=== PATIENT | male | born 1995 | race Caucasian/White ===

== ENCOUNTER 2018-01-11 22:25 | Emergency (ER) | payer OTHER ==
--- NOTE | 2018-01-11 22:29 | ER Report ---
History and Physical Time Seen By MD: 22:27 HPI/ROS CHIEF COMPLAINT: Head injury HISTORY OF PRESENT ILLNESS: 22-year-old male presents to the ER complaining of dizziness and headache after he was looking in the fridge rate or when he stood up the freezer door was open he slammed his head into the freezer door quite heartily. He did not fall to the floor. He notes a headache. There is a superficial abrasion to the scalp noted. He notes no neck pain, no chest pain and no other injuries. He notes no visual changes. He notes no nausea or vomiting to suggest concussion or head injury. Patient thinks his last tetanus status is up-to-date. REVIEW OF SYSTEMS: Respiratory: No cough, no dyspnea. Cardiovascular: No chest pain, no palpitations. Gastrointestinal: No vomiting, no abdominal pain. Musculoskeletal: No back pain. Allergies: Coded Allergies: No Known Drug Allergies (Unverified , 01/11/18) Reviewed Nurses Notes: Yes Old Medical Records Reviewed: Yes Constitutional Vital Sign - Last 24 Hours 01/11/18 22:32 Temp 98.1 Pulse 93 Resp 14 B/P (MAP) 142/99 Pulse Ox 96 O2 Delivery Room Air Physical Exam General Appearance: The patient is alert, has no immediate need for airway p rotection and no current signs of toxicity. Vital signs stable, afebrile, palpation of the head and neck reveal no tenderness or trauma. There is some redness to the forehead and scalp. HEENT: Pupils equal and round no injection. TMs normal, oropharynx without dental trauma., Facial bones intact on facial palpation Respiratory: Chest is non tender, lungs are clear to auscultation. Cardiac: regular rate and rhythm Gastrointestinal: Abdomen is soft and non tender, no masses, bowel sounds normal. Musculoskeletal: Neck: Neck is supple and non tender. No tenderness on aggressive palpation of the midline Extremities have full range of motion and are non tender. Skin: No rashes or lesions. DIFFERENTIAL DIAGNOSIS: After history and physical exam differential diagnosis was considered for head injury including but not limited to concussion, skull fracture, intraparenchymal contusion, subarachnoid, subdural and epidural hematoma. Medical Decision Making ED Course/Re-evaluation ED Course Patient was admitted to an examination room. H&P was done. The differential diagnosis was considered. On clinical examination. Patient has a nonfocal neurologic examination. He has minor head injury, trauma. There are no scalp contusions that are palpable. Patient's advised conservative treatment at home with head injury precautions and ibuprofen 600 mg 3 times daily for pain relief. Decision to Disposition Date: Jan 11, 2018 Decision to Disposition Time: 22:36 Depart Departure Latest Vital Signs Vital Signs Date Time Temp Pulse Resp B/P (MAP) Pulse Ox O2 Delivery O2 Flow Rate FiO2 01/11/18 22:32 98.1 93 14 142/99 96 Room Air Impression: Primary Impression: Head injury Additional Impressions: Scalp abrasion Dizziness Condition: Improved Disposition: HOME OR SELF-CARE Patient Instructions: Acute Wound Care (ED), Head Injury (ED) Additional Instructions: Take ibuprofen and Tylenol as needed Return to the ER for any worsening, especially regarding head injury precautions Problem Qualifiers Primary Impression: Head injury Encounter type: initial encounter Qualified Codes: S09.90XA - Unspecified injury of head, initial encounter Additional Impressions: Scalp abrasion Encounter type: initial encounter Qualified Codes: S00.01XA - Abrasion of scalp, initial encounter GLORIA CERVANTES DO Jan 11, 2018 22:29
[2018-01-11 22:32] VITALS: BP 142/99
== END 2018-01-11 23:00 | disposition home or self-care (01) ==
LOC: ER 22:47
DX: S09.90XA Unspecified injury of head, initial encounter (principal); S00.01XA Abrasion of scalp, initial encounter; R42 Dizziness and giddiness
CPT/HCPCS: 99281